=== PATIENT | female | born 1980 | race Caucasian/White ===

== ENCOUNTER 2020-07-10 14:51 | Outpatient (CLI) | payer OTHER, SELFPAY ==
--- NOTE | ~2020-07-10 | US_ITS ---
EXAMINATION: US OB <= 14 weeks fetus EXAM DATE: 07/10/2020 15:37 INDICATION: For dating. 1st trimester.. TECHNIQUE: Pelvic obstetrical transabdominal sonogram was performed by a technologist. There are mu ltiple grayscale and Doppler images available for interpretation. There are no earlier studies of th is gestation for comparison. FINDINGS: Uterus measures 14.5 x 6.6 x 8.3 cm. There is intrauterine gestation sac. pole with heart rate confirmed at 173 beats per minute. The 2.7 cm crown-rump length corresponds to estimated gestational age by ultrasound of 9 weeks 4 days, estimated date of confinement 02/08/2021. Yolk sac is identified. There is no sonographic evidence of subchorionic hemorrhage. There is a small subc horionic hemorrhage measuring 9 x 5 x 5 mm. The ovaries are morphologically normal. IMPRESSION: Early live intrauterine gestation, age by ultrasound 9 weeks 4 days. Small subchorionic hemorrhage. Reviewed, dictated and finalized at location A. IMPRESSION: Early live intrauterine gestation, age by ultrasound 9 weeks 4 day s. Small subchorionic hemorrhage.
== END 2020-07-10 14:52 | disposition home or self-care (01) ==
LOC: ANHIMG 14:58
PROVIDERS: PCP Internal Medicine; Visit Provider Nurse Practitioner
DX: Z36.9 Encounter for antenatal screening, unspecified (principal); Z3A.09 9 weeks gestation of pregnancy
CPT/HCPCS: 76801

== ENCOUNTER 2020-07-27 08:54 | Outpatient (CLI) | payer OTHER, SELFPAY ==
--- NOTE | ~2020-07-27 | US_ITS ---
EXAMINATION: US OB <= 14 weeks fetus DATE: 07/27/2020 09:29 INDICATION: Subchorionic hemorrhage during first trimester of TECHNIQUE: Real-time pelvic ultrasound utilizing transabdominal probe was performed. The lucero chaudhry radiologist was not present for the study. COMPARISON: 07/10/2020 FINDINGS: The uterus measures 15.1 x 7.7 cm. There is an intrauterine gestational sac. A single fetus is ident ified. The crown rump length measures 5.3 cm, which correlates with an estimated gestational age of 1 2 weeks and 0 days. heart motion is identified measuring 152 beats per minute (bpm) by M-mode D oppler. Full increase in a still very small, previously 9 x 5 x 5 mm, currently 13 x 9 x 8 mm subchor ionic hematoma. The ovaries are not visualized There is no free fluid in the pelvis. IMPRESSION: 1. Single living fetus with heart rate of 152 bpm. 2. Increase in size of a still very small 13 x 9 x 8 mm subchorionic hematoma. 3. [place]-rump length of 5.3 cm which is concordant within range of measurement error of the previousl y estimated gestational age by ultrasound of 11 weeks 6 day(s) with ultrasound estimated date of deli very (JABARI) of 02/09/2021. Reviewed, dictated and finalized at location A. IMPRESSION: 1. Single living fetus with heart rate of 152 bpm. 2. Increase in size of a still very small 13 x 9 x 8 mm subchorionic hematoma. 3. [place]-rump length of 5.3 cm which is concordant within range of measurement error of the previously estimated gestational age by ultrasound of 11 weeks 6 d ay(s) with ultrasound estimated date of delivery (JABARI) of 02/09/2021.
== END 2020-07-27 08:55 | disposition home or self-care (01) ==
LOC: ANHIMG 09:00
PROVIDERS: PCP Internal Medicine; Visit Provider Obstetrics & Gynecology
DX: O36.8910 Maternal care for other specified fetal problems, first trimester, not applicable or unspecified (principal); Z3A.00 Weeks of gestation of pregnancy not specified
CPT/HCPCS: 76801

== ENCOUNTER 2020-08-14 10:53 | Outpatient (CLI) | payer OTHER, SELFPAY ==
--- NOTE | ~2020-08-14 | US_ITS ---
EXAMINATION: US OB >= 14 weeks Fetus DATE: 08/14/2020 11:58 INDICATION: Subchorionic hematoma follow-up. TECHNIQUE: Real-time ultrasound of the pelvis was performed. COMPARISON: Ultrasound 07/27/2020, 07/10/2020 FINDINGS: There is a single living fetus in variable presentation. The placenta is posterior. heart rate is 131 beats per minute (bpm). The amniotic fluid volume is subjectively normal. The following biometric data were obtained: Biparietal diameter (BPD): 2.6 cm; head circumference (HC): 10.2 cm; abdominal circumference (AC): 8. 7 cm; femur length (FL): 1.5 cm. These measurements are concordant. Estimated weight is 105 g +/- 16 g, which correlates with 46th percentile when 02/08/21 is used as estimated date of delivery. As single measurements, these parameters are each equal to the following estimated gestational ages: BPD: 14 weeks 4 days. HC: 14 weeks 6 days. AC: 14 weeks 6 days. FL: 14 weeks 4 days. estimated gestational age based solely on measurements from this exam is 14 weeks 5 days +/- 1 weeks 0 days. IMPRESSION: 1. Single living fetus in variable presentation. 2. Estimated weight is 105 g +/- 16 g, which correlates with 46th percentile when 02/08/21 is u sed as estimated date of delivery. This date was set by ultrasound on 07/10/2020. 3. Normal placenta. No subchorionic hematoma. Reviewed, dictated and finalized at location A. IMPRESSION: 1. Single living fetus in variable presentation. 2. Estimated weight is 105 g +/- 16 g, which correlates with 46th percen tile when 02/08/21 is used as estimated date of delivery. This date was set by u ltrasound on 07/10/2020. 3. Normal placenta. No subchorionic hematoma.
== END 2020-08-14 10:54 | disposition home or self-care (01) ==
PROVIDERS: PCP Internal Medicine; Visit Provider Obstetrics & Gynecology
DX: O36.8910 Maternal care for other specified fetal problems, first trimester, not applicable or unspecified (principal); Z3A.00 Weeks of gestation of pregnancy not specified
CPT/HCPCS: 76805

== ENCOUNTER 2020-08-31 14:39 | Outpatient (CLI) | payer OTHER, SELFPAY ==
--- NOTE | ~2020-08-31 | US_ITS ---
EXAMINATION: US OB limited DATE: 08/31/2020 15:15 INDICATION: Assess viability during second trimester . TECHNIQUE: Real-time ultrasound of the pelvis was performed. The interpreting radiologist was not pre sent for the study. COMPARISON: None. FINDINGS: There is a single living fetus in vertex presentation. The placenta is posterior fundal. heart rate is 142 beats per minute (bpm). The amniotic fluid volume is subjectively normal. IMPRESSION: 1. Single living fetus in vertex presentation with heart rate of 142 bpm. Reviewed, dictated and finalized at location A. IMPRESSION: 1. Single living fetus in vertex presentation with heart rate of 142 bpm .
== END 2020-08-31 14:40 | disposition home or self-care (01) ==
LOC: ANHIMG 14:44
PROVIDERS: PCP Internal Medicine; Visit Provider Obstetrics & Gynecology
DX: O36.80X0 Pregnancy with inconclusive fetal viability, not applicable or unspecified (principal); Z3A.00 Weeks of gestation of pregnancy not specified
CPT/HCPCS: 76815

== ENCOUNTER 2020-11-05 12:12 | Observation (INO) | payer OTHER, SELFPAY ==
--- NOTE | 2020-11-05 12:12 | OBADM ---
This patient, Kylee Proctor, admitted to the OB room OB Post 115 for observation. Patient/family oriented to hospital policies and general routines including ID bracelet, bed and alarms, visiting hours, pain management, procedures, bathroom and other care routines, personal items, smoking policy, room service/diet, and visiting hours. Patient/Family are encouraged to report perceived risks to care and to ask questions if they do not understand what they are told or what they should do.
[2020-11-05 12:30] VITALS: BMI 34.9
[2020-11-05 12:32] VITALS: BP 115/69; PULSE 64
[2020-11-05 13:20] VITALS: TEMP 36.6
[2020-11-05 13:35] LABS: Add Urine Microscopic? YES; Appearance Urine Clear (Clear); Bacteria Urine Trace /hpf; Bilirubin Urine Negative (Negative); Blood Urine Negative (Negative); Color Urine Yellow (Yellow); Glucose Urine UA Negative (Negative); Ketones Urine Trace mg/dL (Negative); Leukocyte Esterase Ur Negative LEU/UL (NEGATIVE); Mucus Urine Rare /lpf; Nitrate Urine Negative (Negative); Protein Urine Negative (Negative); RBC Urine 0-2 /hpf (0-2); Specific Grav Ur 1.013 (1.001-1.035); Squamous Epithelial Cell Urine Rare /hpf (Few); Urobilinogen Urine Negative mg/dL (<2.0); WBC Urine 0-3 /hpf (0-3)
--- NOTE | 2020-11-09 07:51 | PM.OBTRLD ---
OB - Triage/Final Diagnosis Visit Information Reason for evaluation: other (vaginal pressure) Evaluation Laboratory results: Laboratory Tests 11/05/20 13:12 Urine Color Yellow Urine Appearance Clear Urine pH 6.0 Ur Specific [place] 1.013 Urine Protein Negative Urine Glucose (UA) Negative Urine Ketones Trace Ur Blood (Man) Negative Urine Nitrate Negative Urine Bilirubin Negative Urine Urobilinogen Negative Ur Leukocyte Esterase Negative Urine RBC 0-2 Urine WBC 0-3 Ur Squamous Epith Cells Rare Urine Bacteria Trace Urine Mucus Rare
== END 2020-11-05 14:00 | disposition home or self-care (01) ==
PROVIDERS: Admitting Provider Obstetrics & Gynecology Gynecology; PCP Internal Medicine; Visit Provider Obstetrics & Gynecology Gynecology
DX: O26.893 Other specified pregnancy related conditions, third trimester (principal); R10.2 Pelvic and perineal pain; Z3A.00 Weeks of gestation of pregnancy not specified
CPT/HCPCS: 81001; 87086; G0378; G0379

== ENCOUNTER 2020-12-12 08:45 | Outpatient (RCR) | payer OTHER, SELFPAY ==
[2020-12-12 09:01] VITALS: BP 104/67; PULSE 88
[2020-12-12 09:15] VITALS: BP 97/63; PULSE 74
[2020-12-12 10:11] VITALS: BP 97/63; PULSE 64
== END 2021-01-22 08:13 | disposition home or self-care (01) ==
LOC: ANHOBOP 08:45
PROVIDERS: PCP Internal Medicine; Visit Provider Obstetrics & Gynecology
DX: O36.8130 Decreased fetal movements, third trimester, not applicable or unspecified (principal); Z3A.31 31 weeks gestation of pregnancy
CPT/HCPCS: 59025

== ENCOUNTER 2020-12-29 09:41 | Emergency (ER) | payer OTHER, SELFPAY ==
[2020-12-29 10:04] VITALS: BP 115/65; PULSE 68; RESP 17; TEMP 36.2; O2SAT 100
--- NOTE | 2020-12-29 10:17 | ECG_ITS ---
Measurements Intervals [place] Rate: 74 P: 38 MS: 165 QRS: 18 QRSD: 113 T: 16 QT: 384 QTc: 429 Interpretive Statements SINUS RHYTHM INTRAVENTRICULAR CONDUCTION DELAY MINIMAL Q WAVES- HIGH LATERAL LEADS BASELINE ARTIFACT- V4-V5 BORDERLINE ECG Electronically Signed On 12-29-2020 11:29:58 ELECTROTHERAPIST by Jose L Mohr D.O.
--- NOTE | 2020-12-29 10:40 | ED.SYNCOPE ---
HPI - Syncope General Chief Complaint: Weakness <Dyana Key PA-C - Last Filed: 12/29/20 14:31> Stated Complaint: near syncopal, 34 wks preg <SANDRA Salamanca Last Filed: 12/29/20 14:31> Time Seen by Provider: 12/29/20 10:16 <SANDRA Salamanca Last Filed: 12/29/20 14:31> Source: patient <SANDRA Salamanca Last Filed: 12/29/20 14:31> Mode of arrival: EMS <SANDRA Salamanca Last Filed: 12/29/20 14:31> Limitations: no limitations <SANDRA Salamanca Last Filed: 12/29/20 14:31> History of Present Illness HPI narrative: This is a 40-year-old female that presents to the emergency department via EMS for a syncopal episode today. Reports she was standing up at the desk at the [facility]. Reports she started to feel lightheaded. Reports someone there helped her to a chair and she sat down. Reports she does think she passed out briefly. Reports that she was given some water and crackers and felt better. Reports she is [address] Giraldo is her OB. She has had a couple of syncopal episodes earlier in this . She does report she has been feeling the baby move while in the ED. Denies chest pain, shortness of breath, palpitations, or lower extremity edema. <Dyana Key PA-C - Last Filed: 12/29/20 14:31> Related Data Allergies/Adverse Reactions: Allergies Allergy/AdvReac Type Severity Reaction Status Date / Time No Known Allergies Verified 09/24/10 07:31 <SANDRA Salamanca Last Filed: 12/29/20 14:31> Review of Systems Review of Systems: Narrative: CONSTITUTIONAL: Denies fever CARDIOVASCULAR: Denies chest pain, palpitations, or edema. RESPIRATORY: Denies dyspnea. NEUROLOGIC: Denies numbness, or weakness. <SANDRA Salamanca Last Filed: 12/29/20 14:31> All systems reviewed & are unremarkable except as noted in HPI and below <Dyana Key PA-C - Last Filed: 12/29/20 14:31> PMFSH Surgical History Surgical History: Surgical History (Updated 12/29/20 @ 10:44 by Dyana Key PA-C) History of gastric bypass <Dyana Key PA-C - Last Filed: 12/29/20 14:31> Social History Social History: Social History (Updated 12/29/20 @ 10:44 by Dyana Key PA-C) Smoking status: Never smoker Substance use: never <Dyana Key PA-C - Last Filed: 12/29/20 14:31> Exam Narrative: Exam Narrative: GENERAL: Well-appearing, well-nourished, and in no acute distress. HEAD: Normocephalic, atraumatic. EYES: PERRLA and EOMI. ENT: Nares clear, no rhinorrhea or epistaxis. Mucous membranes moist. Oropharynx without tonsillar hypertrophy exudate or other lesions. Bilateral TMs pearly aguilar non-bulging NECK: Supple. No adenopathy or masses. CHEST: Clear to auscultation. No respiratory distress. No wheezes rales or rhonchi HEART: Regular rate and rhythm. No murmur heard. Normal peripheral pulses. EXTREMITIES: Normal range of motion. No edema. Strength equal in bilateral upper and lower extremities (5/5) SKIN: Warm, dry, no rash. NEURO: No focal deficits. Alert and oriented x3. Cranial nerves II through XII grossly intact. Normal [id number] PSYCH: Normal mood and affect <Dyana Key PA-C - Last Filed: 12/29/20 14:31> Course Consultations Consultation #1: Spoke with Dr. Herring about patient and work-up. Would like patient to be started on iron twice daily and increased oral fluids. Patient instructed to follow-up at her appointment next week <Dyana Key PA-C - Last Filed: 12/29/20 14:31> Date: 12/29/20 <Dyana Key PA-C - Last Filed: 12/29/20 14:31> Time: 14:28 <Dyana Key PA-C - Last Filed: 12/29/20 14:31> Vital Signs Vital signs: Vital Signs Temperature 97.2 F L 12/29/20 10:04 Pulse Rate 68 12/29/20 10:04 Respiratory Rate 17 12/29/20 10:04 Blood Pressure 115/65 12/29/20 10:04 Pulse Oximetry 100 12/29/20 10:04 Temperature 97.2
--- NOTE | 2020-12-29 10:43 | PC.NURSE ---
called Awilda heredia, added on PT INR PTT and Trop I [id number]
[2020-12-29 10:46] LABS: Basophils Percent Auto 0.4 % (0.2-1.2); Eosinophils Percent Auto 0.2 % (0-4.4); Hematocrit 28.6 % (37.0-47.0); Hemoglobin 9.6 g/dL (12.0-15.0); Immature Granulocyte Absolute 0.02 K/mm3 (0.00-0.031); Immature Granulocyte Percent A 0.4 % (0-0.5); Lymphocytes Absolute Auto 0.79 K/mm3 (0.9-3.2); Lymphocytes Percent Auto 15.9 % (18.3-44.2); Mean Corpuscular HGB Conc 33.6 g/dl (32-36); Mean Corpuscular Hemoglobin 32.4 pg (26-34); Mean Corpuscular Volume 96.6 fl (80-100); Mean Platelet Volume 10.2 fl (7.4-10.4); Monocytes Absolute Auto 0.3 K/mm3 (0.1-0.6); Monocytes Percent Auto 6.2 % (2.6-8.5); Neutrophils Absolute Auto 3.8 K/mm3 (1.3-6.7); Neutrophils Percent Auto 76.9 % (45.5-73.1); Platelet Count Result 174 k/mm3 (150-375); Red Blood Count 2.96 M/mm3 (4.2-5.4)
[2020-12-29 10:51] VITALS: BP 120/63; PULSE 62
[2020-12-29 10:53] VITALS: BP 110/79; PULSE 77
[2020-12-29 10:55] VITALS: BP 125/94; PULSE 91
[2020-12-29 10:56] LABS: INR 0.9; Partial Thromboplastin Time 26.8 SECONDS (22.3-36.8); Prothrombin Time 12.6 Seconds (11.1-14.7)
[2020-12-29 11:00] LABS: Alanine Aminotransferase 9 U/L (4-35); Albumin Level 2.8 g/dL (3.5-5.1); Alkaline Phosphatase 62 U/L (38-126); Anion Gap -1 mmol/L (8-16); Aspartate Amino Transferase 15 U/L (14-36); Bilirubin,Total 0.4 mg/dL (0.2-1.3); Blood Urea Nitrogen 8 mg/dL (7-17); Calcium 7.7 mg/dL (8.4-10.2); Carbon Dioxide 26 mmol/L (22-30); Chloride 108 mmol/L (98-107); Estimated CRCL calculation 143 ml/min; Estimated Glomerular Filt Rate > 60; Glucose 67 mg/dL (65-105); Potassium 3.5 mmol/L (3.4-5.0); Sodium 133 mmol/L (137-145)
[2020-12-29] MEDS: SODIUM CHLORIDE 0.9% IV 1,000 ML 999 ML IV CONT (11:03)
--- NOTE | 2020-12-29 11:05 | PC.NURSE ---
Pt refusing Xray. Informed SRIKANTH Key of this.
[2020-12-29 11:17] LABS: Add Urine Microscopic? YES; Appearance Urine Cloudy (Clear); Bacteria Urine Trace /hpf; Bilirubin Urine Negative (Negative); Blood Urine Negative (Negative); Color Urine Yellow (Yellow); Glucose Urine UA Negative (Negative); Ketones Urine Negative (Negative); Leukocyte Esterase Ur Negative LEU/UL (Negative); Mucus Urine Few /lpf; Nitrate Urine Negative (Negative); Protein Urine 1+ mg/dL (Negative); RBC Urine 0-2 /hpf (0-2); Specific Grav Ur 1.015 (1.001-1.035); Squamous Epithelial Cell Urine Occasional /hpf (Few)
[2020-12-29 11:29] LABS: Troponin I < 0.012 ng/mL (0.000-0.034)
--- NOTE | 2020-12-29 11:46 | PC.NURSE ---
called OB - Joy charge account clerk aware order of NST test. States will send OB RN over to ER asif.
[2020-12-29 12:00] VITALS: BP 129/83; PULSE 65; RESP 15; O2SAT 100
--- NOTE | 2020-12-29 13:10 | PC.NURSE ---
Michelle from OB to ED to do NST on pt. Per Wendy everything looks good .
--- NOTE | 2020-12-29 13:19 | PC.NURSE ---
Fht's monitored for 20 mins baseline 120's with accels to 160's. Reactive strip. Feels positive movement. Some irritability noted
== END 2020-12-29 14:43 | disposition home or self-care (01) ==
PROVIDERS: Physician Assistant; Emergency Provider General Practice; PCP Internal Medicine
DX: O26.893 Other specified pregnancy related conditions, third trimester (principal); R55 Syncope and collapse; O99.013 Anemia complicating pregnancy, third trimester; D64.9 Anemia, unspecified; O99.843 Bariatric surgery status complicating pregnancy, third trimester; Z3A.34 34 weeks gestation of pregnancy; I45.9 Conduction disorder, unspecified
CPT/HCPCS: 36415; 80053; 81001; 84484; 85025; 85610; 85730; 87086; 93005; 96360; 99284; J7030

== ENCOUNTER 2021-01-29 10:06 | Outpatient (RCR) | payer OTHER, SELFPAY ==
[2021-01-08 14:59] VITALS: BP 99/63; PULSE 73
--- NOTE | ~2021-01-29 | US_ITS ---
EXAMINATION: US OB BPP wo non-stress DATE: 01/29/2021 11:12 INDICATION: Decreased movement. Third trimester. TECHNIQUE: Real-time pelvic ultrasound was performed. COMPARISON: Ultrasound 08/31/2020 FINDINGS: There is a single living fetus in vertex presentation. The placenta is fundal. heart rate is 1 54 beats per minute (bpm). Biophysical profile performed by the technologist: breathing (30 sec sustained breathing in 30 minutes): 2 out of 2 movement (3 gross body movements in 30 minutes): 2 out of 2 tone (one episode of zcqmdyk-rjlotgiba-xfdfvpy limb movement): 2 out of 2 Amniotic fluid pocket (2 cm): 2 out of 2 Total score: 8 out of 8 IMPRESSION: 1. Single living fetus in vertex presentation. 2. Biophysical profile 8 out of 8. Reviewed, dictated and finalized at location A. H HANDLE ASSEMBLER
[2021-01-29 10:38] VITALS: BP 120/62
== END 2021-02-02 07:40 | disposition home or self-care (01) ==
LOC: ANHOBOP 10:06
PROVIDERS: PCP Internal Medicine; Visit Provider Obstetrics & Gynecology
DX: O36.8130 Decreased fetal movements, third trimester, not applicable or unspecified (principal); Z3A.35 35 weeks gestation of pregnancy; Z3A.38 38 weeks gestation of pregnancy
CPT/HCPCS: 59025; 76819

== ENCOUNTER 2021-02-01 05:05 | Inpatient (IN) | payer OTHER, SELFPAY ==
[2021-02-01] VITALS (101 sets, daily range): BP systolic 81–143; BP diastolic 38–110; PULSE 47–112; RESP 16; TEMP 36.4–37; O2SAT 99–100; BMI 38.6
--- NOTE | 2021-02-01 05:05 | LDADM ---
This patient, Kylee Proctor, was admitted to Labor/Delivery/Recovery 102 on 02/01/21 at 05:05. Plans for labor, pain management and were discussed with patient. Patient/family oriented to hospital policies and general routines including ID bracelet, bed and alarms, visiting hours, pain management, procedures, bathroom and other care routines, personal items, smoking policy, room service/diet and guest tray routines, security routines, and visiting hours. Patient/Family are encouraged to report perceived risks to care and to ask questions if they do not understand what they are told or what they should do. See OBIX for further documentation.
[2021-02-01 05:49] LABS: Basophils Percent Auto 0.5 % (0.2-1.2); Eosinophils Percent Auto 0.8 % (0-4.4); Hematocrit 29.8 % (37.0-47.0); Hemoglobin 9.7 g/dL (12.0-15.0); Immature Granulocyte Absolute 0.01 K/mm3 (0.00-0.031); Immature Granulocyte Percent A 0.3 % (0-0.5); Lymphocytes Absolute Auto 1.02 K/mm3 (0.9-3.2); Lymphocytes Percent Auto 25.7 % (18.3-44.2); Mean Corpuscular HGB Conc 32.6 g/dl (32-36); Mean Corpuscular Hemoglobin 31.1 pg (26-34); Mean Corpuscular Volume 95.5 fl (80-100); Monocytes Absolute Auto 0.2 K/mm3 (0.1-0.6); Neutrophils Absolute Auto 2.7 K/mm3 (1.3-6.7); Neutrophils Percent Auto 66.7 % (45.5-73.1); Platelet Count Result 183 k/mm3 (150-375); Red Blood Count 3.12 M/mm3 (4.2-5.4); Red Cell Distribution Width 13.7 % (11.5-14.5)
[2021-02-01] MEDS: LACTATED RINGERS 1,000 ML 125 ML IV CONT ×2 (05:55→08:45)
[2021-02-01] MEDS: OXYTOCIN 30 UNITS/NS 500 ML 30 UNITS/500 ML BAG IV CONT (05:55)
--- NOTE | 2021-02-01 07:44 | WPDOBADMIT ---
Obstetrics - Admit Note Admission Note: AROm clear fluid /-2 vertex record reviewed. No pertinent additions to the history and/or any subsequent changes in the physical findings that are not consistent with the expected course of the were found. Additions to the history and/or subsequent changes in the physical findings follow. None.
[2021-02-01 07:50] LABS: Rapid Plasma Reagin Non-Reactive (NonReactive)
--- NOTE | 2021-02-01 09:03 | WPDANESEPP ---
Anes - Eval Pre Procedure Procedure: Labor epidural Date/Time: 02/01/21 09:03 Surgeon: jaylen Preop Diagnosis: abd pain with contractions Pre Op Diagnosis: Induction of Labor Patient Data Age: 40 Gender: F Height: 5 ft 4 in Weight: 102 kg Last Vital Signs Temp 97.6 F 02/01/21 06:44 Pulse 59 L 02/01/21 09:01 BP 129/78 02/01/21 09:01 Allergies Allergy/AdvReac Type Severity Reaction Status Date / Time No Known Allergies Verified 01/15/21 13:36 Home Medications Medication Instructions Recorded Confirmed Type ferrous fumarate [Ferrocite] 324 mg PO DAILY 14 Days #14 tablet 12/29/20 02/01/21 Rx docusate sodium [Colace] 100 mg PO DAILY 01/15/21 01/15/21 History magnesium 250 mg PO DAILY 01/15/21 01/15/21 History polyethylene glycol 3350 [Miralax] 17 g PO BID 01/15/21 01/15/21 History prenat.vits,mateus,qcp-yqej-hlxyb 1 tablet PO DAILY 01/15/21 01/15/21 History [ #2] Laboratory Tests 02/01/21 02/01/21 02/01/21 05:43 05:43 05:43 WBC 4.0 K/mm3 L K/mm3 (4.5-10.0) RBC 3.12 M/mm3 L M/mm3 (4.2-5.4) Hgb 9.7 g/dL L g/dL (12.0-15.0) Hct 29.8 % L % (37.0-47.0) MCV 95.5 fl fl (80-100) MCH 31.1 pg pg (26-34) MCHC 32.6 g/dl g/dl (32-36) RDW 13.7 % % (11.5-14.5) Plt Count 183 k/mm3 k/mm3 (150-375) MPV 10.0 fl fl (7.4-10.4) Immature Gran % (Auto) 0.3 % % (0-0.5) Neut % (Auto) 66.7 % % (45.5-73.1) Lymph % (Auto) 25.7 % % (18.3-44.2) [place] % (Auto) 6.0 % % (2.6-8.5) Eos % (Auto) 0.8 % % (0-4.4) Baso % (Auto) 0.5 % % (0.2-1.2) Lymph # (Auto) 1.02 K/mm3 K/mm3 (0.9-3.2) [place] # (Auto) 0.2 K/mm3 K/mm3 (0.1-0.6) Eos # (Auto) 0.0 K/mm3 K/mm3 (0-0.3) Baso # (Auto) 0.0 K/mm3 K/mm3 (0.0-0.1) Abs Immat Gran (auto) 0.01 K/mm3 K/mm3 (0.00-0.031) Absolute Neuts (auto) 2.7 K/mm3 K/mm3 (1.3-6.7) Absolute Nucleated RBC 0.0 K/mm3 K/mm3 (0.0-0.012) Nucleated RBC % 0.0 % % (0.0-0.2) RPR Non-reactive (NonReactive) Blood Type A Positive Antibody Screen Negative Patient hx anesthesia problems: none Family hx anesthesia problems: none PMFSH Past Medical History Medical History Anemia Anxiety and depression Morbid obesity and not yet delivered Surgical History Surgical History H/O gastric bypass History of gastric bypass Family History Family History Grandparent Diabetes mellitus Lupus Alzheimer disease Lung disease Father Emphysema lung Chronic obstructive pulmonary disease Sibling Depression Anxiety Social History Social History Smoking status: Never smoker Substance use: never Spiritual care concerns: No Exam Day of Procedure 02/01/21 09:03 Patient weight: morbidly obese Airway: Mallampati scale class II Neurological: alert and oriented
--- NOTE | 2021-02-01 11:15 | PM.OBPRVD ---
OB - Delivery Note Procedure Delivery date: 02/01/21 Procedure: events: Labor Induction Intrapartal events: None Induction method: AROM and per pitocin protocol Delivery monitor: external FHT and external uterine Laceration Description: Perineal - 2nd Degree Delivery repair: vicryl Quantitative Blood Loss (ml): 210 Anesthesia type: Epidural Disposition: floor Baby Date of : 02/01/21 Time of : 10:57 Weeks of gestation at delivery: 39 gender: Female Weight (pounds): 6 Weight (ounces): 11 presentation: vertex position: Right Occiput Anterior cord vessel description: 3 Vessels, Nuchal Cord and Loose score one minute: 9 score five minutes: 9
[2021-02-01] MEDS: OXYTOCIN 30 UNITS/NS 500 ML 30 UNITS/500 ML BAG 125 UNITS IV CONT (11:31)
[2021-02-01] MEDS: BENZOCAINE 20% AER SPR (*SP) 56 GM CAN 1 SPRAY TOPICAL (12:42)
[2021-02-01] MEDS: ACETAMINOPHEN 325 MG TABLET 650 MG PO ×2 (12:42→23:09)
[2021-02-01] MEDS: WITCH HAZEL 40 PADS 1 PAD TOPICAL (12:42)
--- NOTE | 2021-02-01 15:00 | PC.NURSE ---
PT arrived on unit via wheelchair accompanied by friend and and taken to room 288. PT introductions made and plan of care discussed per post , pain management, bottle feeding, daily care activities. NO barriers to learning. pt instructed via one to one discussion and verbalized understanding of such instructions. Welcome packet reviewed and discussed.
[2021-02-02 05:00] VITALS: BP 123/57; PULSE 73; RESP 16; TEMP 36.9; O2SAT 100
[2021-02-02 05:26] LABS: Hemoglobin 8.4 g/dL (12.0-15.0)
[2021-02-02] MEDS: ACETAMINOPHEN 325 MG TABLET 650 MG PO (05:47)
[2021-02-02] MEDS: polyethylene glycoL 3350 17 GM POWD.PACK PO (07:31)
[2021-02-02] MEDS: MULTIVIT/MIN/PREN/FOL AC/IRON TABLET 1 TAB PO (07:31)
[2021-02-02] MEDS: POLYSACCHARIDE IRON COMPLEX 150 MG CAPSULE PO (07:31)
[2021-02-02] MEDS: MAGNESIUM OXIDE 200 MG TABLET PO (07:31)
[2021-02-02] MEDS: DOCUSATE SODIUM 100 MG CAPSULE PO (07:31)
[2021-02-02 08:45] VITALS: BP 117/74; PULSE 71; RESP 16; TEMP 37.3; O2SAT 100
--- NOTE | 2021-02-02 09:46 | WPDANLDPN2 ---
Anes-Prog Note L&D Date/Time: 02/02/21 09:46 Comfortable throughout: labor and delivery Neuraxial method: epidural Epidural/Spinal procedure site: clean & non-tender Neuro status: Neuro function grossly intact. Cardiovascular status: normal Respiratory status: normal Airway patency: baseline Mental status: baseline Post-Op hydration status: normal Vital Signs: Last Vital Signs Temp 37.3 C 02/02/21 08:45 Pulse 71 02/02/21 08:45 Resp 16 02/02/21 08:45 BP 117/74 02/02/21 08:45 Pulse Ox 100 02/02/21 08:45 Pain score (VAS): 0 Post-procedural complaints: none Patient feedback: Patient satisfied with anesthetic care.
--- NOTE | 2021-02-02 12:40 | PC.NURSE ---
Patient instructed to view the discharge video Mother & Baby Care, The First Two Weeks . Patient was given the opportunity and encouraged to ask questions. Patient verbalized understanding of information shared and has been given the mother/baby guide for home reference.
--- NOTE | 2021-02-02 12:48 | PM.OBPNVD ---
OB - PN: Subj Subjective Date/time seen: 02/02/21 12:48 doing well no complaints desires home today OB - PN: Obj Data Labs CBC & Chem 7: 02/02/21 05:08 Labs: Laboratory Results - last 24 hr 02/02/21 05:08 Hgb 8.4 L Hct 26.0 L OB - PN A/P Assessment and Plan (1) Anemia affecting : Code(s): O99.019 - Anemia complicating , unspecified trimester Status: Acute Assessment and Plan: history of gastric bypass surgery continue with iron supplements (2) (normal spontaneous vaginal delivery): Code(s): O80 - Encounter for full-term uncomplicated delivery Status: Acute Assessment and Plan: d/c home f/u in six weeks desires ocp for control. Time Spent With Patient Time: Total time spent is greater than 50% in coordination of care (as documented) at patient's floor/unit and/or counseling patient: Exam : Other: ff below umbilicus
--- NOTE | 2021-03-08 08:13 | PM.OBDSVD ---
DS: Admitting Diagnosis Admitting Diagnosis Admitting Diagnosis: indduction of Labor OB - DS: Summary OB Procedures : NST and Ultrasound OB Procedures Intrapartum: Spontaneous Vag Delivery OB Procedures: : None Peripartum Data Delivery Method: Natural Vaginal Laceration Description: Perineal - 2nd Degree complications: none Status at Discharge Functional status at discharge: independent ambulation Overall status at discharge: patient is progressing back to baseline Time Spent with Patient Time attestation: Total time spent providing and/or coordinating discharge services: Discharge Plan Discharge Attending physician on discharge: Kael Giraldo Discharging Clinician: Kael Giraldo Patient Disposition: Home, Self-Care Activity: may shower Diet: as tolerated Discharge Instructions: Education: Mom and Baby Guide and Preeclampsia Handout Given to: Mother Follow-Up: Call your delivering provider's office for an appointment to be seen in: 4 Weeks Mom and baby [facility] come [facility] for the follow-up appointment. Appointment Date/Time: February 03, 2021 at 11:00 am What to expect at your follow-up visit: Physical Assessment Call [phone] if you are unable to keep your appointment time. BREAST CARE: * Wear a snug supportive bra. * For engorgement discomfort: Bottle Feeding: * May apply ice packs EPISIOTOMY/PERINEAL CARE: * Until bleeding stops, use your [place] bottle after urinating * Change your pad frequently throughout the day * You may take sitz baths several times a day (fill your bathtub with warm water and soak for 20 minutes.) Do NOT bathe in the water * No tub baths until seen by your physician - You may shower ACTIVITY: * Rest as much as possible. * Do not exercise or lift anything heavier than your baby (such as laundry or other children.) * Avoid stairs or driving as much as possible. * Do not put anything into the vagina. No douching, tampons, or sexual activity until seen by physician. NOTIFY PHYSICIAN IF YOU HAVE ANY QUESTIONS OR IF ANY OF THE FOLLOWING SYMPTOMS OCCUR: * If your episiotomy or incision becomes red, swollen, or more painful than what you have experienced in the hospital. * If your vaginal bleeding becomes foul smelling. * If your vaginal bleeding becomes more heavy than a period or if your bleeding changes from pink to bright red. However, you may pass an occasional walnut-sized clot once or twice for the first week . * If you experience a sharp, shooting pain in you calves. * If you discover a hard, reddened area on your breast or if you experience flu-like symptoms. DIET: * Eat regular, well-balanced meals. * Drink plenty of fluids daily. Stand Alone Forms: General Discharge Information Follow-up/Referrals: Kael Giraldo MD [Physician] - Discharge Medications: Continued ferrous fumarate [Ferrocite] 324 mg (106 mg iron) tablet 324 mg PO DAILY 14 Days Qty: 14 RF: 0 docusate sodium [Colace] 100 mg Capsule 100 mg PO DAILY RF: 0 magnesium 250 mg Tablet 250 mg PO DAILY RF: 0 polyethylene glycol 3350 [Miralax] 17 gram/dose Powder 17 g PO BID RF: 0 prenat.vits,mateus,kep-zhkx-bpcjc Tablet 1 tablet PO DAILY RF: 0 Date of admission: 02/01/21 05:05 Primary Care Provider: Anupam,Zaire Moore Admitting Provider: Kael Giraldo Attending physician on admission: Kael Giraldo Condition: Stable
== END 2021-02-02 13:47 | disposition home or self-care (01) | DRG 560 ==
LOC: ANHLDR 05:09 → ANHOB2 14:38
PROVIDERS: Admitting Provider Obstetrics & Gynecology; Family Provider Family Medicine; PCP Internal Medicine; Visit Provider Obstetrics & Gynecology
DX: O99.02 Anemia complicating childbirth (principal); O70.1 Second degree perineal laceration during delivery; O69.81X0 Labor and delivery complicated by cord around neck, without compression, not applicable or unspecified; D64.9 Anemia, unspecified; Z3A.39 39 weeks gestation of pregnancy; Z37.0 Single live birth; Z98.84 Bariatric surgery status
CPT/HCPCS: 36415; 85014; 85018; 85025; 86592; 86850; 86900; 86901; A9270; J2590; J2795; J7120

== ENCOUNTER → 2021-11-12 02:46 | Outpatient (CLI) | payer OTHER, SELFPAY ==
[2021-11-12 19:24] LABS: SARS-CoV-2 RNA PCR Negative
== END ==
PROVIDERS: PCP Internal Medicine; Visit Provider Internal Medicine Gastroenterology
DX: Z01.812 Encounter for preprocedural laboratory examination (principal); Z20.822 Contact with and (suspected) exposure to COVID-19
CPT/HCPCS: C9803; U0003; U0005

== ENCOUNTER 2021-11-15 00:59 | Day surgery (SDC) | payer OTHER, SELFPAY ==
[2021-11-02 13:54] VITALS: BMI 30.8
--- NOTE | 2021-11-15 08:36 | P.PNAN_ITS ---
Anes - Initial Pre Proc Eval Procedure: Operation Date: 11/15/21 09:30 Proposed Procedures p Esophagogastroduodenoscopy - Saurabh Garcia MD Date/Time: 11/15/21 08:36 Surgeon: Saurabh Garcia MD Pre Op Diagnosis: GERD Patient Data Age: 40 Gender: F Height: 1.6 m Weight: 79 kg Allergies Allergy/AdvReac Type Severity Reaction Status Date / Time No Known Allergies Verified 11/02/21 13:51 Home Medications Medication Instructions Recorded Confirmed Type docusate sodium [Colace] 100 mg PO DAILY 01/15/21 11/02/21 History polyethylene glycol 3350 [Miralax] 17 g PO BID 01/15/21 11/02/21 History bupropion HCl 150 mg tablet,12 hr 150 mg PO DAILY 10/17/21 11/02/21 History sustained-release wheat dextrin 3 gram/3.5 gram oral 1 packet PO DAILY 10/17/21 11/02/21 History powder packet Patient hx anesthesia problems: none Family hx anesthesia problems: none Results Review: All pre-operative results and documents have been reviewed as part of the pre-operative evaluation. [facility] Past Medical History Medical History (Updated 11/15/21 @ 08:36 by Johnathon Melendez DO) Anemia Anemia affecting Anxiety and depression (normal spontaneous vaginal delivery) and not yet delivered Surgical History Surgical History (Updated 10/17/21 @ 08:42 by Saurabh Garcia MD) H/O gastric bypass History of gastric bypass Family History Family History Grandparent Diabetes mellitus Lupus Alzheimer disease Lung disease Father Emphysema lung Chronic obstructive pulmonary disease Sibling Depression Anxiety Social History Social History Smoking status: Never smoker Substance use: never Living arrangements: with family Spiritual care concerns: No Anes - Eval Final PreProcedure Day of Procedure 11/15/21 08:36 Patient weight: obese Heart: regular rate and rhythm Lungs: clear to auscultation and normal air movement Airway: Mallampati scale class II Neurological: alert and oriented Last oral intake: >/= 8 hours ASA classification: II Emergent: no Anesthetic plan: proceed Anesthesia type and monitoring: general GIVS and standard monitoring Results Review: All pre-operative results and documents have been reviewed as part of the pre-operative evaluation. Informed Consent: The patient's anesthetic plan and its attendant risks and benefits were discussed with the patient/family/POA. Questions were solicited and answers provided to the satisfaction of the patient/family/POA.
--- NOTE | 2021-11-15 08:49 | WPDHPUPDATE1 ---
History and Physical Update Update Date/Time: 11/15/21 08:49 History and Physical has been reviewed, including an updated exam of the patient. There are NO changes in the patient's condition. Risks, benefits, and alternatives have been discussed and questions answered. Patient agrees to proceed with procedure.
[2021-11-15] MEDS: LACTATED RINGERS 1,000 ML 150 ML IV CONT (08:58)
[2021-11-15 09:00] VITALS: BP 143/68; PULSE 74; RESP 16; TEMP 36.4; O2SAT 100
[2021-11-15] MEDS: BENZOCAINE (*SP) 60 ML SPRAY CAN (HURRICAINE) 1 SPRAY MUCOUS MEM (09:20)
[2021-11-15 09:30] VITALS: BP 105/70; PULSE 57; RESP 19; O2SAT 96
[2021-11-15 09:40] VITALS: BP 108/66; PULSE 59; RESP 18; O2SAT 100
[2021-11-15 09:50] VITALS: BP 121/68; PULSE 53; RESP 16; O2SAT 100
== END 2021-11-15 10:01 | disposition home or self-care (01) ==
PROVIDERS: PCP Internal Medicine; Visit Provider Internal Medicine Gastroenterology
PROC: 0DJ08ZZ Inspection of Upper Intestinal Tract, Via Natural or Artificial Opening Endoscopic (ICD-10-PCS; CPT 43235; principal; 2021-11-15 09:30)
DX: K21.9 Gastro-esophageal reflux disease without esophagitis (principal); Z98.84 Bariatric surgery status; F41.8 Other specified anxiety disorders
CPT/HCPCS: 43239; 88305; J2704; J7120

== ENCOUNTER 2022-12-24 10:02 | Outpatient (CLI) | payer OTHER, SELFPAY ==
--- NOTE | ~2022-12-24 | US_ITS ---
EXAMINATION: US venous doppler [facility] DATE: 12/24/2022 10:35 INDICATION: Left lower limb swelling TECHNIQUE: Grayscale ultrasound images without and with compression and Doppler ultrasound images of the left lower extremity veins were obtained. COMPARISON: 07/02/2010 FINDINGS: The visualized portions of left common femoral vein, profunda (deep) femoral vein, femoral vein, popl iteal vein, peroneal veins, posterior tibial veins, gastrocnemius vein and greater saphenous vein out flow are patent. IMPRESSION: 1. No deep venous thrombosis in the left lower limb. Reviewed, dictated and finalized at location [facility]
== END 2022-12-24 10:03 | disposition home or self-care (01) ==
PROVIDERS: PCP Internal Medicine; Visit Provider Nurse Practitioner
DX: R60.9 Edema, unspecified (principal)
CPT/HCPCS: 93971

== ENCOUNTER 2023-03-27 01:24 | Day surgery (SDC) | payer OTHER, SELFPAY ==
[2023-03-18 12:48] VITALS: BMI 34.4
[2023-03-27 07:12] VITALS: BP 126/56; PULSE 68; RESP 20; TEMP 36.4; O2SAT 100
--- NOTE | 2023-03-27 07:21 | WPDANESEPPF ---
Anes - Initial Pre Proc Eval Procedure: Operation Date: 03/27/23 08:30 Proposed Procedures p Screening Colonoscopy - Saurabh Garcia MD Date/Time: 03/27/23 07:21 Surgeon: Saurabh Garcia MD Pre Op Diagnosis: neoplasm screening & Hx of anemia Patient Data Age: 42 Gender: F Height: 1.63 m Weight: 84.6 kg Last Vital Signs Temp 36.4 C L 03/27/23 07:12 Pulse 68 03/27/23 07:12 Resp 20 03/27/23 07:12 BP 126/56 L 03/27/23 07:12 Pulse Ox 100 03/27/23 07:12 O2 Del Method Room Air 03/27/23 07:12 Allergies Allergy/AdvReac Type Severity Reaction Status Date / Time No Known Allergies Verified 03/27/23 07:11 Home Medications Medication Instructions Recorded Confirmed Type docusate sodium 100 mg capsule 100 mg PO DAILY 01/15/21 03/18/23 History (Colace) polyethylene glycol 3350 17 17 g PO BID 01/15/21 03/18/23 History gram/dose oral powder (Miralax) bupropion HCl 150 mg tablet,12 hr 300 mg PO DAILY 10/17/21 03/18/23 History sustained-release (Wellbutrin SR) wheat dextrin 3 gram/3.5 gram oral 1 packet PO DAILY 10/17/21 03/18/23 History powder packet (Benefiber Clear Sugar Free(dextrin)) sodium,potassium,mag sulfates 17.5 See Rx Instructions PO .COMPLEX 03/12/23 Rx gram-3.13 gram-1.6 gram oral soln #354 mL (Suprep Bowel Prep Kit) alprazolam 0.25 mg tablet 0.25 mg PO Q4-6H PRN Anxiety 03/18/23 03/18/23 History buspirone 5 mg tablet 5 mg PO BID 03/18/23 03/18/23 History duloxetine 30 mg capsule,delayed 30 mg PO DAILY 03/18/23 03/18/23 History release Patient hx anesthesia problems: none Family hx anesthesia problems: none Results Review: All pre-operative results and documents have been reviewed as part of the pre-operative evaluation. [facility] Past Medical History Medical History Anemia Anemia affecting Anxiety and depression (normal spontaneous vaginal delivery) and not yet delivered Surgical History Surgical History H/O gastric bypass History of gastric bypass Family History Family History Grandparent Diabetes mellitus Lupus Alzheimer disease Lung disease Father Emphysema lung Chronic obstructive pulmonary disease Sibling Depression Anxiety Social History Social History Smoking status: Never smoker Alcohol intake: never Substance use: never Substance use type: does not use Living arrangements: alone Spiritual care concerns: No Anes - Eval Final PreProcedure Day of Procedure 03/27/23 07:21 Patient weight: obese Heart: regular rate and rhythm Lungs: clear to auscultation Neurological: alert and oriented Last oral intake: >/= 8 hours ASA classification: II Emergent: no Anesthetic plan: proceed Anesthesia type and monitoring: general GIVS and standard monitoring Results Review: All pre-operative results and documents have been reviewed as part of the pre-operative evaluation. Informed Consent: The patient's anesthetic plan and its attendant risks and benefits were discussed with the patient/family/POA. Questions were solicited and answers provided to the satisfaction of the patient/family/POA.
[2023-03-27] MEDS: LACTATED RINGERS 1,000 ML 150 ML IV CONT (07:23)
--- NOTE | 2023-03-27 08:01 | PM.HPGS ---
History of Present Illness History of Present Illness Consent: Risks, benefits, and alternatives have been discussed and questions answered. Patient agrees to proceed with procedure. Chief complaint: neoplasm screening & Hx of anemia Narrative: Kylee Proctor is a 42 year old female Presents for screening colonoscopy. Patient reports her weight appetite bowel movements are normal. Patient denies abdominal pain. She has had bleeding. Patient does have a history of gastric bypass in 2019. Currently being followed for anemia which is chronic. She denies any obvious bleeding. Has no abdominal pain. Her bowel habits are normal. No family history of colon rectal disease is described. Review of Systems Review of Systems: Review of systems noncontributory. [facility] Past Medical History Medical History (Updated 03/27/23 @ 08:03 by Saurabh Garcia MD) Anemia Anemia affecting Anxiety and depression (normal spontaneous vaginal delivery) and not yet delivered Surgical History Surgical History H/O gastric bypass History of gastric bypass Family History Family History Grandparent Diabetes mellitus Lupus Alzheimer disease Lung disease Father Emphysema lung Chronic obstructive pulmonary disease Sibling Depression Anxiety Social History Social History Smoking status: Never smoker Alcohol intake: never Substance use: never Substance use type: does not use Living arrangements: alone Spiritual care concerns: No Meds Home Medications and Allergies Home Medications Medication Instructions Recorded Confirmed Type docusate sodium 100 mg capsule 100 mg PO DAILY 01/15/21 03/18/23 History (Colace) polyethylene glycol 3350 17 17 g PO BID 01/15/21 03/18/23 History gram/dose oral powder (Miralax) bupropion HCl 150 mg tablet,12 hr 300 mg PO DAILY 10/17/21 03/18/23 History sustained-release (Wellbutrin SR) wheat dextrin 3 gram/3.5 gram oral 1 packet PO DAILY 10/17/21 03/18/23 History powder packet (Benefiber Clear Sugar Free(dextrin)) sodium,potassium,mag sulfates 17.5 See Rx Instructions PO .COMPLEX 03/12/23 Rx gram-3.13 gram-1.6 gram oral soln #354 mL (Suprep Bowel Prep Kit) alprazolam 0.25 mg tablet 0.25 mg PO Q4-6H PRN Anxiety 03/18/23 03/18/23 History buspirone 5 mg tablet 5 mg PO BID 03/18/23 03/18/23 History duloxetine 30 mg capsule,delayed 30 mg PO DAILY 03/18/23 03/18/23 History release Allergies Allergy/AdvReac Type Severity Reaction Status Date / Time No Known Allergies Verified 03/27/23 07:11 Vital Signs Vital Signs - 24 hr 03/27/23 07:12 Temperature 97.5 F L Pulse Rate 68 Respiratory Rate 20 Blood Pressure 126/56 L Pulse Oximetry 100 Oxygen Delivery Room Air Exam Narrative: Physical exam reveals patient to be alert. Vital signs stable. HEENT exam is unremarkable. Patient is anicteric. Lungs are clear to auscultation and percussion. Heart is without murmur or extra sounds. Abdomen bowel sounds are present soft nontender with no organomegaly. Digital external rectal exam is normal. Assessment and Plan Assessment and plan (1) Encounter for screening colonoscopy: Code(s): Z12.11 - Encounter for screening for malignant neoplasm of colon Status: Acute Assessment and Plan: Patient referred for screening colonoscopy on the advice of her daytime caregiver. Plan is for colonoscopy. Patient appears be at average risk for colon polyps. (2) History of gastric bypass: Code(s): Z98.84 - Bariatric surgery status Status: Acute Assessment and Plan: patient has history of previous gastric bypass. Is possible this contributes to her anemia with iron malabsorption. She may benefit from parental iron if iron defi
[2023-03-27 08:30] VITALS: BP 102/57; PULSE 62; RESP 15; O2SAT 100
[2023-03-27 08:40] VITALS: BP 114/58; PULSE 60; RESP 18; O2SAT 100
[2023-03-27 08:50] VITALS: BP 111/71; PULSE 57; RESP 16; O2SAT 100
== END 2023-03-27 09:00 | disposition home or self-care (01) ==
PROVIDERS: PCP Internal Medicine; Referring Provider Nurse Practitioner; Visit Provider Internal Medicine Gastroenterology
PROC: 0DJD8ZZ Inspection of Lower Intestinal Tract, Via Natural or Artificial Opening Endoscopic (ICD-10-PCS; CPT 45378; principal; 2023-03-27 08:30)
DX: Z12.11 Encounter for screening for malignant neoplasm of colon (principal); D64.9 Anemia, unspecified; F41.8 Other specified anxiety disorders; Z98.84 Bariatric surgery status; E66.9 Obesity, unspecified; Z68.32 Body mass index [BMI] 32.0-32.9, adult
CPT/HCPCS: 45378; J2704; J7120